=== PATIENT | female | born 1965 | race Caucasian/White ===

== ENCOUNTER 2023-08-11 16:59 | Inpatient (IN) | payer MEDICARE, OTHER ==
[~2023-08-11] VITALS: Ht 167.6 cm; Wt 67.1 kg
[2023-08-11 20:00] VITALS: BP 114/67; TEMP 97.7; O2SAT 96
[2023-08-11] MEDS ORDERED: ACET-73 GT (21:28)
[2023-08-11] MEDS ORDERED: APIX5TAB GT (21:30)
[2023-08-11] MEDS ORDERED: SENN-18 GT (21:52)
[2023-08-11] MEDS ORDERED: HYDR-4076 PO (21:52)
[2023-08-11] MEDS ORDERED: LEVE100S GT (21:52)
[2023-08-11] MEDS ORDERED: INSU100V42 SQ (21:52)
[2023-08-11] MEDS ORDERED: INSU100V7 SQ (21:52)
[2023-08-11] MEDS ORDERED: SCOP1PAT11 TD (21:52)
[2023-08-11] MEDS ORDERED: ONDA4TAB5 GT (21:52)
[2023-08-11] MEDS ORDERED: HYDR-3972 GT (21:52)
[2023-08-11] MEDS ORDERED: LORA-259 GT (21:52)
[2023-08-11 23:24] VITALS: O2SAT 95
[2023-08-11] MEDS ORDERED: ONDANSETRON HCL/PF 4 MG/2 ML VIAL IVP PRN (23:30)
[2023-08-11] MEDS ORDERED: Z GUARD REMEDY 4 OZ OINT TP PRN (23:30)
[2023-08-11] MEDS ORDERED: MAGNESIUM HYDROXIDE 30 ML UDC PO PRN (23:30)
[2023-08-11] MEDS ORDERED: ACETAMINOPHEN 650 MG/20.3 ML UDC GT PRN (23:30)
[2023-08-12] VITALS (12 sets, daily range): BP systolic 102–134; BP diastolic 67–72; TEMP 97.7–98.8; O2SAT 93–95
[2023-08-12] MEDS ORDERED: SENNOSIDES 8.6 MG TABLET GT PRN
[2023-08-12] MEDS ORDERED: CEFTRIAXONE 1 G in IV D5W 50 ML IV ONE
[2023-08-12] MEDS ORDERED: DEXTROSE 50%-WATER 50 ML DISP.SYRIN IV PRN (01:00)
[2023-08-12 01:09] LABS: CALCIUM, SERUM 9.3 mg/dL (8.5-10.1); CREATININE 0.7 mg/dL (0.6-1.3); POTASSIUM 3.3 mmol/L (3.5-5.1)
[2023-08-12 01:20] LABS: LACTIC ACID 1.3 mmol/L (0.4-2.0)
[2023-08-12] MEDS ORDERED: CEFTRIAXONE 1GM BAG (ER ONLY) 50 ML IV ONE (01:58)
[2023-08-12] MEDS: BLOOD SUGAR DIAGNOSTIC 1 EACH STRIP IN SCH (06:36)
[2023-08-12] MEDS: INSULIN REGULAR, HUMAN 100 UNIT/ML 3 ML VIAL SQ PRN (06:38)
[2023-08-12 06:59] LABS: BASOPHILS # (AUTO) 0.1 K/uL (0.0-0.2); BASOPHILS % (AUTO) 0.9 % (0.0-2.0); EOSINOPHILS # (AUTO) 0.5 K/uL (0.0-0.7); EOSINOPHILS % (AUTO) 6.4 % (0.0-6.0); HEMATOCRIT 32 % (33-45); HEMOGLOBIN 10.9 g/dL (11.5-14.8); LYMPHOCYTES # (AUTO) 2.4 K/uL (0.8-4.8); LYMPHOCYTES % (AUTO) 28.6 % (20.0-44.0); MEAN CORPUSCULAR HEMOGLOBIN 30 PG (26.0-33.0); MEAN CORPUSCULAR HGB CONC 34 g/dl (31.0-36.0); MEAN CORPUSCULAR VOLUME 89 fL (82-100); MONOCYTES % (AUTO) 12.2 % (2.0-12.0); NEUTROPHILS # (AUTO) 4.3 K/uL (1.8-8.9); NEUTROPHILS % (AUTO) 51.9 % (43.0-81.0); PLATELET COUNT (AUTO) 294 K/uL (150-450); RED BLOOD CELL COUNT(AUTO) 3.62 MIL/uL (4.0-5.2); RED CELL DISTRIBUTION WIDTH 15.4 % (11.5-15.0); WHITE BLOOD COUNT (AUTO) 8.4 K/uL (4.3-11.0)
[2023-08-12 07:34] LABS: CALCIUM, SERUM 9.1 mg/dL (8.5-10.1); CREATININE 0.6 mg/dL (0.6-1.3); MAGNESIUM 2.1 mg/dL (1.8-2.4); PHOSPHORUS 3.4 mg/dL (2.5-4.9); POTASSIUM 3.3 mmol/L (3.5-5.1)
[2023-08-12] MEDS ORDERED: CEFTRIAXONE 1 G in IV D5W 50 ML IV SCH ×2 (09:00→23:00)
[2023-08-12] MEDS: SCOPOLAMINE PATCH 1 MG/72HR TD SCH (09:23)
[2023-08-12] MEDS: LEVETIRACETAM SOL (5 ML) 100 MG/ML UDC GT SCH (09:24)
[2023-08-12] MEDS: ASPIRIN 81 MG TAB.CHEW GT SCH (09:24)
[2023-08-12] MEDS: PANTOPRAZOLE 40 MG/PACK PACK GT SCH (09:24)
[2023-08-12] MEDS: APIXABAN 5 MG TABLET GT SCH (09:25)
[2023-08-12] MEDS ORDERED: ZINC56.713 TP (10:38)
[2023-08-12] MEDS ORDERED: VITS42.53 TP (10:38)
[2023-08-12] MEDS ORDERED: CHLO473M5 PO (10:38)
[2023-08-12] MEDS ORDERED: GLUC1KIT IJ (10:38)
[2023-08-12] MEDS ORDERED: ARGI1POW13 GT (10:38)
[2023-08-12] MEDS ORDERED: ACET325T53 GT (10:38)
[2023-08-12] MEDS ORDERED: CHOL12502 GT (10:38)
[2023-08-12] MEDS ORDERED: MULT-213 GT (10:38)
[2023-08-12] MEDS ORDERED: AMIN30LI27 GT (10:38)
[2023-08-12] MEDS ORDERED: KETO15CR2 TP (10:38)
[2023-08-12] MEDS ORDERED: ASCO500T10 GT (10:38)
[2023-08-12] MEDS ORDERED: ZINC50TA69 GT (10:38)
[2023-08-12] MEDS ORDERED: BLOO-668 IN (10:38)
[2023-08-12] MEDS ORDERED: NUT.250L18 GT (10:38)
[2023-08-12] MEDS ORDERED: IPRA3AMP23 IH ×2 (10:38)
[2023-08-12] MEDS ORDERED: TRULICITY SQ (10:38)
[2023-08-12] MEDS ORDERED: ACETYLCYSTEINE IH (10:38)
[2023-08-12] MEDS ORDERED: DOCU100T2 GT (10:38)
[2023-08-12] MEDS: POTASSIUM CHLORIDE 20 MEQ POWDER PACKET NG SCH (10:58)
[2023-08-12] MEDS: GLUCERNA 1.2 1,000 ML BOTTLE NG PRN (11:08)
[2023-08-12] MEDS: THERAHONEY GEL 1.5 OZ TUBE TP SCH (12:10)
[2023-08-12] MEDS: CLOTRIMAZOLE 1% 15 GM TUBE TP SCH (16:29)
[2023-08-12] MEDS ORDERED: CEFEPIME 1 GM in IV D5W 50 ML IV SCH (21:00)
[2023-08-12] MEDS: CEFEPIME 2 GM in IV D5W 100 ML IV SCH (21:12)
[2023-08-12] MEDS: INSULIN GLARGINE, 100 UNIT/ML CARTRIDGE SQ SCH (22:31)
[2023-08-13] VITALS (12 sets, daily range): BP systolic 107–120; BP diastolic 69–75; TEMP 97.9–98.5; O2SAT 94–99
[2023-08-13 07:21] LABS: BASOPHILS % (AUTO) 0.5 % (0.0-2.0); EOSINOPHILS # (AUTO) 0.6 K/uL (0.0-0.7); EOSINOPHILS % (AUTO) 5.8 % (0.0-6.0); HEMATOCRIT 35 % (33-45); HEMOGLOBIN 11.3 g/dL (11.5-14.8); LYMPHOCYTES # (AUTO) 2.1 K/uL (0.8-4.8); LYMPHOCYTES % (AUTO) 22.8 % (20.0-44.0); MEAN CORPUSCULAR HEMOGLOBIN 29 PG (26.0-33.0); MEAN CORPUSCULAR HGB CONC 33 g/dl (31.0-36.0); MEAN CORPUSCULAR VOLUME 90 fL (82-100); MONOCYTES # (AUTO) 1.1 K/uL (0.1-1.30); MONOCYTES % (AUTO) 11.8 % (2.0-12.0); NEUTROPHILS # (AUTO) 5.6 K/uL (1.8-8.9); NEUTROPHILS % (AUTO) 59.1 % (43.0-81.0); PLATELET COUNT (AUTO) 283 K/uL (150-450); RED BLOOD CELL COUNT(AUTO) 3.85 MIL/uL (4.0-5.2); RED CELL DISTRIBUTION WIDTH 15.9 % (11.5-15.0); WHITE BLOOD COUNT (AUTO) 9.4 K/uL (4.3-11.0)
[2023-08-13 07:44] LABS: CALCIUM, SERUM 9.1 mg/dL (8.5-10.1); CREATININE 0.6 mg/dL (0.6-1.3); PHOSPHORUS 3.8 mg/dL (2.5-4.9); POTASSIUM 3.4 mmol/L (3.5-5.1)
[2023-08-13] MEDS ORDERED: MAGNESIUM HYDROXIDE 30 ML UDC GT PRN (09:47)
[2023-08-13] MEDS ORDERED: POTASSIUM CHLORIDE 20 MEQ TAB.PRT.SR PO SCH (10:00)
[2023-08-13] MEDS: POTASSIUM CHLORIDE 20 MEQ POWDER PACKET GT SCH (10:59)
[2023-08-13] MEDS ORDERED: Medication Not On Formulary EA (Ipratropium/Albuterol Sulfate (Duoneb 2.5-0.5 Mg/3 Ml So IH SCH (12:00)
[2023-08-13] MEDS: PROSOURCE / PROSTAT (PYXIS) 30 ML UDC GT SCH (13:29)
[2023-08-13] MEDS: MULTIVITAMINS,THERAGRAN 1 UDTAB TABLET GT SCH (13:29)
[2023-08-13] MEDS: IPRATROPIUM NEB FS 0.5 MG/2.5 ML AMPUL.NEB NEB SCH (13:59)
[2023-08-13] MEDS: ALBUTEROL FS 2.5 MG/3 ML VIAL.NEB NEB SCH (13:59)
[2023-08-13] MEDS: ASCORBIC ACID 500 MG TABLET GT SCH (16:12)
[2023-08-13] MEDS: ARGININE/GLUTAMINE/CALCIUM BMB 1 EACH POWD.PACK GT SCH (16:12)
[2023-08-13] MEDS: DOCUSATE SODIUM LIQ 100 MG/10 ML UDC GT SCH (16:12)
[2023-08-13] MEDS: CHLORHEXIDINE GLUCONATE 15 ML UDC MM SCH (20:31)
[2023-08-13] MEDS: PERMETHRIN 5% CRM 60 GM TUBE TP ONE (21:35)
[2023-08-14] VITALS (16 sets, daily range): BP systolic 109–130; BP diastolic 60–79; TEMP 97.7–98.4; O2SAT 94–98
[2023-08-14 08:03] LABS: CALCIUM, SERUM 9.1 mg/dL (8.5-10.1); CREATININE 0.8 mg/dL (0.6-1.3); POTASSIUM 3.8 mmol/L (3.5-5.1)
[2023-08-14] MEDS: ZINC SULFATE 220 MG CAPSULE PO SCH (09:41)
[2023-08-15] VITALS (14 sets, daily range): BP systolic 106–123; BP diastolic 77–87; TEMP 97.9–99; O2SAT 93–100
[2023-08-15 07:10] LABS: BASOPHILS # (AUTO) 0.1 K/uL (0.0-0.2); BASOPHILS % (AUTO) 0.6 % (0.0-2.0); EOSINOPHILS # (AUTO) 0.5 K/uL (0.0-0.7); EOSINOPHILS % (AUTO) 4.8 % (0.0-6.0); HEMATOCRIT 36 % (33-45); HEMOGLOBIN 11.7 g/dL (11.5-14.8); LYMPHOCYTES # (AUTO) 2.4 K/uL (0.8-4.8); MEAN CORPUSCULAR HEMOGLOBIN 30 PG (26.0-33.0); MEAN CORPUSCULAR HGB CONC 32 g/dl (31.0-36.0); MEAN CORPUSCULAR VOLUME 91 fL (82-100); MONOCYTES # (AUTO) 1.1 K/uL (0.1-1.30); MONOCYTES % (AUTO) 10.4 % (2.0-12.0); NEUTROPHILS # (AUTO) 6.1 K/uL (1.8-8.9); NEUTROPHILS % (AUTO) 60.2 % (43.0-81.0); PLATELET COUNT (AUTO) 285 K/uL (150-450); RED BLOOD CELL COUNT(AUTO) 3.98 MIL/uL (4.0-5.2); RED CELL DISTRIBUTION WIDTH 16.3 % (11.5-15.0); WHITE BLOOD COUNT (AUTO) 10.2 K/uL (4.3-11.0)
[2023-08-15 07:38] LABS: CALCIUM, SERUM 9.7 mg/dL (8.5-10.1); CREATININE 0.9 mg/dL (0.6-1.3); MAGNESIUM 2.1 mg/dL (1.8-2.4)
[2023-08-15 08:00] LABS: POTASSIUM 3.9 mmol/L (3.5-5.1)
[2023-08-15] MEDS ORDERED: LEVO500T90 PO (11:30)
[2023-08-16] MEDS ORDERED: ALBUTEROL FS 2.5 MG/3 ML VIAL.NEB ONE (18:22)
[2023-08-16] MEDS ORDERED: IPRATROPIUM NEB FS 0.5 MG/2.5 ML AMPUL.NEB ONE (18:23)
== END 2023-08-15 18:05 | DRG 871 ==
LOC: TELE-TD 19:40 → TELE1 08-12 00:06 → MEDSG1 08-15 11:43
PROVIDERS: ADMIT Nurse Practitioner Family; ATTEND Nurse Practitioner Acute Care
DX: A41.9 Sepsis, unspecified organism (principal); G93.41 Metabolic encephalopathy; L89.154 Pressure ulcer of sacral region, stage 4; I21.A1 Myocardial infarction type 2; R53.2 Functional quadriplegia; J18.9 Pneumonia, unspecified organism; I47.10 Supraventricular tachycardia, unspecified; N39.0 Urinary tract infection, site not specified; Z99.11 Dependence on respirator [ventilator] status; J96.10 Chronic respiratory failure, unspecified whether with hypoxia or hypercapnia; J44.0 Chronic obstructive pulmonary disease with (acute) lower respiratory infection; I48.20 Chronic atrial fibrillation, unspecified; E87.20 Acidosis, unspecified; E11.9 Type 2 diabetes mellitus without complications; G35 Multiple sclerosis; G40.909 Epilepsy, unspecified, not intractable, without status epilepticus; R13.10 Dysphagia, unspecified; Z79.01 Long term (current) use of anticoagulants; Z93.1 Gastrostomy status; Z93.3 Colostomy status; R65.20 Severe sepsis without septic shock; N31.9 Neuromuscular dysfunction of bladder, unspecified; I50.9 Heart failure, unspecified; I48.0 Paroxysmal atrial fibrillation; Z93.0 Tracheostomy status; B85.2 Pediculosis, unspecified; Z88.1 Allergy status to other antibiotic agents; Z88.5 Allergy status to narcotic agent; Z20.822 Contact with and (suspected) exposure to COVID-19; B96.89 Other specified bacterial agents as the cause of diseases classified elsewhere; R21 Rash and other nonspecific skin eruption; L98.8 Other specified disorders of the skin and subcutaneous tissue; S40.812A Abrasion of left upper arm, initial encounter; S40.811A Abrasion of right upper arm, initial encounter; X58.XXXA Exposure to other specified factors, initial encounter; Y93.9 Activity, unspecified; Y92.129 Unspecified place in nursing home as the place of occurrence of the external cause; Z79.4 Long term (current) use of insulin
CPT/HCPCS: 31720; 36415; 71045-TC; 80048-TC; 80061-TC; 82962-TC; 83605-TC; 83735-TC; 84100-TC; 84484-TC; 85025-TC; 87040-TC; 87086-TC; 93307-TC; 94640-TC; 94664-TC; 94760-TC; 94761-TC; 94762-TC; 94799-TC; A4223; A4623; A6253; A6403; A7526; G0378; J0692; J0696; J1815; J1953; J7050; J7060